=== PATIENT | female | born 1975 | race Caucasian/White ===

== ENCOUNTER 2017-03-27 11:14 | Emergency (ER) | payer OTHER ==
[~2017-03-27] VITALS: Ht 167.6 cm; Wt 134.3 kg
[~2017-03-27 11:14] MED LIST: ALBU90OI INH; ALBU90OI6 INH; ALBU90OI61 INH; ATOR10; AZIT250 PO; AZIT500 PO; BACPOLTO OD; CEPH500 PO; CIPR500 PO; CIPRSO OD; CIPRSO OU; CRUTCH2 EXT; CRUTCH2 XX; CRUTCH4 USE; DIPH50 PO; ERYT.5TO OU; FAMO20 PO; FURO20; FURO20 PO; FURO40 PO; GLIP10 PO; Glucophage PO; HYDACE5 PO; HYDACE5325 PO; HYDGUAL120 PO; IBUP600 PO; IBUP800 PO; INSULANPEN; LEVSOD100; LEVSOD175 PO; LEVSOD50 PO; LISI20; LISI20 PO; LORA10ER PO; Lasix20 MG PO; METF500; METF500 PO; METO25ER PO; MICO200S PV; NAPR500 PO; Naprosyn375 MG PO; ONDA4ODT MM; OSEL75CA PO; PIOG15 PO; POTCHL20ER PO; PRED10 PO; PRED20 PO; PROM25 PO; Percocet 5-3251 EACH PO; RANI150 PO; RXHYDGUAS PO; SERT25 PO; SULTRIDS PO; SULTRISS PO; TIOT18 INH; TOBR.3OPO OP; Ultram50 MG PO
[2017-03-27] MEDS ORDERED: ASPI81CH PO (12:04)
[2017-03-27] MEDS ORDERED: Levothyroxine200 MCG (12:04)
[2017-03-27] MEDS ORDERED: DULO60 (12:05)
[2017-03-27] MEDS ORDERED: NORT25 PO (12:05)
[2017-03-27 12:07] LABS: BASOPHILS ABSOLUTE AUTO 0.04 K/mm3 (0.00-0.23); BASOPHILS PERCENT AUTO 1 % (0-2); EOSINOPHILS PERCENT AUTO 4 % (0-6); Hematocrit 35.9 % (33.0-51.0); Hemoglobin 11.2 g/dL (11.5-16.0); IMMATURE GRAN ABSOLUTE AUTO 0.01 K/mm3 (0.00-0.10); IMMATURE GRAN PERCENT AUTO 0 % (0-1); LYMPHOCYTES PERCENT AUTO 39 % (21-46); MONOCYTES ABSOLUTE AUTO 0.65 K/mm3 (0.16-1.47); MONOCYTES PERCENT AUTO 9 % (4-13); Mean Corpuscular HGB Conc 31.2 g/dL (31.5-36.5); Mean Corpuscular Volume 80 fL (80-100); Mean Platelet Volume 10.8 fL (9.1-12.4); NEUTROPHILS ABSOLUTE AUTO 3.38 K/mm3 (1.96-9.15); NEUTROPHILS PERCENT AUTO 47 % (41-73); Platelet Count 206 K/mm3 (150-400); RDW Coefficient Variation 18.2 % (11.7-14.2); RDW Standard Deviation 53.3 fL (35.1-46.3); Red Blood Cell Count 4.48 M/mm3 (3.80-5.20); White Blood Cell Count 7.18 K/mm3 (4.00-11.30)
[2017-03-27 12:30] LABS: Alanine Aminotransfer (ALT/SGP 28 U/L (12-78); Albumin/Globulin Ratio 0.8 (0.8-1.8); Alk Phos 94 U/L (50-136); Anion Gap 7 mmol/L (6-16); Aspartate Aminotrans (AST/SGOT 9 U/L (12-37); Bilirubin, Total 0.2 mg/dL (0.1-1.0); Blood Urea Nitrogen 12 mg/dL (8-24); CO2, Blood 27 mmol/L (21-32); Calcium, Blood 8.4 mg/dL (8.5-10.1); Chloride, Blood 106 mmol/L (98-108); Creatinine, Blood 0.71 mg/dL (0.40-1.00); Glomerular Filtration Rate >60 (60-); Glucose, Blood 136 mg/dL (70-99); Sodium, Blood 140 mmol/L (136-145); Troponin I <0.015 ng/mL (0.000-0.040)
[2017-03-27 13:00] LABS: Source, Urine Clean Catch
[2017-03-27 13:08] LABS: Bilirubin, Urine Neg (Neg); Blood, Urine 3+ (Neg); Glucose Qualitative, Urine 3+ (Neg); Ketones, Urine Neg (Neg); Leukocyte Esterase, Urine 1+ (Neg); Nitrite, Urine Neg (Neg); Protein, Urine 3+ (Neg); Specific Gravity, Urine 1.015 (1.003-1.022); Urobilinogen, Urine 1+ (Normal); pH, Urine 6.5 (5.0-8.0)
[2017-03-27 13:17] LABS: Appearance, Urine Hazy (Clear); Color, Urine Yellow (P-Yellow)
[2017-03-27 13:18] LABS: Red Blood Cells, Urine 0-2 /hpf (0-2)
[2017-03-27 13:19] LABS: Amorphous Light (0-Heavy)
[2017-03-27 13:20] LABS: Bacteria Mod /hpf; Squamous Epithelial Cells Mod /hpf (Few)
[2017-03-27] MEDS ORDERED: Miralax17 GM PO (13:37)
== END 2017-03-27 13:58 | disposition home or self-care (01) ==
LOC: ER 11:14
PROVIDERS: Emergency Medicine
DX: R10.12 Left upper quadrant pain (principal); I11.0 Hypertensive heart disease with heart failure; I50.9 Heart failure, unspecified; E78.00 Pure hypercholesterolemia, unspecified; E11.9 Type 2 diabetes mellitus without complications; J44.9 Chronic obstructive pulmonary disease, unspecified; F17.200 Nicotine dependence, unspecified, uncomplicated; Z88.0 Allergy status to penicillin; Z88.2 Allergy status to sulfonamides; Z88.8 Allergy status to other drugs, medicaments and biological substances; Z79.899 Other long term (current) drug therapy; Z79.4 Long term (current) use of insulin; Z79.82 Long term (current) use of aspirin; Z90.49 Acquired absence of other specified parts of digestive tract
CPT/HCPCS: 36415; 80053; 81001; 81025; 83690; 83880; 84484; 85025; 93005; 93010; 99284

== ENCOUNTER → 2017-08-17 | Outpatient (CLI) | payer OTHER ==
[~2017-08-17] MED LIST changes: +ASPI81CH PO; +DULO60; +Levothyroxine200 MCG; +Miralax17 GM PO; +NORT25 PO
== END ==
LOC: LAB SHORT 07:28 → PLD 07:28
DX: D48.9 Neoplasm of uncertain behavior, unspecified (principal)
CPT/HCPCS: 88305

== ENCOUNTER → 2018-04-14 | Outpatient (CLI) | payer OTHER ==
[2018-04-17 12:16] LABS: Protein, Urine Quantitative 44.2 mg/dL (0.0-11.9)
== END | disposition home or self-care (01) ==
LOC: LAB 10:00 → LAB SHORT 10:00
PROVIDERS: Internal Medicine Nephrology
DX: N18.2 Chronic kidney disease, stage 2 (mild) (principal); D63.1 Anemia in chronic kidney disease; N25.81 Secondary hyperparathyroidism of renal origin; E59 Dietary selenium deficiency; E78.00 Pure hypercholesterolemia, unspecified; R76.9 Abnormal immunological finding in serum, unspecified; R94.5 Abnormal results of liver function studies; R94.6 Abnormal results of thyroid function studies
CPT/HCPCS: 81050; 82043; 82570; 84156

== ENCOUNTER → 2018-04-21 | Outpatient (CLI) | payer OTHER ==
[2018-04-21 14:10] LABS: Protein, Urine Quantitative 36.1 mg/dL (0.0-11.9)
== END | disposition home or self-care (01) ==
LOC: LAB SHORT 09:15 → LAB SRC 09:15 → LAB FUT 04-20 20:05 → EDSTATUS 04-20 20:05
PROVIDERS: Internal Medicine Nephrology
DX: N18.2 Chronic kidney disease, stage 2 (mild) (principal); N20.0 Calculus of kidney; R80.9 Proteinuria, unspecified
CPT/HCPCS: 81050; 82043; 82570; 84156

== ENCOUNTER → 2019-03-21 | Outpatient (CLI) | payer OTHER ==
[2019-03-29 12:31] LABS: Stool Occult Bld Immuno 1 Negative (NEGATIVE)
== END | disposition home or self-care (01) ==
LOC: LAB SHORT 10:14 → LAB 10:14
PROVIDERS: Nurse Practitioner Family
DX: D64.9 Anemia, unspecified (principal)
CPT/HCPCS: G0328

== ENCOUNTER 2019-05-06 04:32 | Inpatient (IN) | payer OTHER ==
[~2019-05-06] VITALS: Ht 161.6 cm; Wt 136.1 kg
[2019-05-06] MEDS ORDERED: Buspirone HCl30 MG PO (04:49)
[2019-05-06] MEDS ORDERED: ATORVASTATIN CA20 MG PO (04:49)
[2019-05-06] MEDS ORDERED: CARV6.25 PO (04:49)
[2019-05-06] MEDS ORDERED: TIOT18 INH (04:50)
[2019-05-06] MEDS ORDERED: Ventolin/Prove6.7 GM (04:50)
[2019-05-06 05:12] LABS: BASOPHILS ABSOLUTE AUTO 0.05 K/mm3 (0.00-0.23); BASOPHILS PERCENT AUTO 1 % (0-2); EOSINOPHILS ABSOLUTE AUTO 0.18 K/mm3 (0.00-0.68); EOSINOPHILS PERCENT AUTO 2 % (0-6); Hematocrit 31.4 % (33.0-51.0); Hemoglobin 9.6 g/dL (11.5-16.0); IMMATURE GRAN ABSOLUTE AUTO 0.05 K/mm3 (0.00-0.10); IMMATURE GRAN PERCENT AUTO 1 % (0-1); LYMPHOCYTES ABSOLUTE AUTO 1.55 K/mm3 (0.84-5.20); LYMPHOCYTES PERCENT AUTO 15 % (21-46); MONOCYTES PERCENT AUTO 11 % (4-13); Mean Corpuscular HGB 25.1 pg (26.0-34.0); Mean Corpuscular HGB Conc 30.6 g/dL (31.5-36.5); Mean Corpuscular Volume 82 fL (80-100); Mean Platelet Volume 11.1 fL (9.1-12.4); NEUTROPHILS PERCENT AUTO 71 % (41-73); Platelet Count 149 K/mm3 (150-400); RDW Standard Deviation 59.7 fL (35.1-46.3); Red Blood Cell Count 3.82 M/mm3 (3.80-5.20); White Blood Cell Count 10.53 K/mm3 (4.00-11.30)
[2019-05-06 05:30] LABS: Albumin, Blood 2.7 g/dL (3.4-5.0); Albumin/Globulin Ratio 0.6 (0.8-1.8); Bilirubin, Total 0.3 mg/dL (0.1-1.0); Bun/Creatinine Ratio 27.5 (12.0-20.0); Calcium, Blood 8.1 mg/dL (8.5-10.1); Creatinine, Blood 1.09 mg/dL (0.40-1.00); Globulin, Blood 4.7 g/dL (2.2-4.0); Potassium, Blood 3.9 mmol/L (3.5-5.5); Total Protein, Blood 7.4 g/dL (6.4-8.2)
[2019-05-06 05:58] LABS: Influenza A Positive (NEGATIVE); Influenza B Negative (NEGATIVE)
[2019-05-06 17:18] LABS: Glucose, Blood 692 mg/dL (70-99)
--- NOTE | 2019-05-06 18:42 | NUR ---
ADMIT NOTE AND SHIFT SUMMARY RECEIVED REPORT FROM FLACO VALLE IN ED, PT TO ROOM AT 0940. SBA TRANSFERED TO BED. PT REPORTS SOB, PRODUCTIVE COUGH AND CONGESTION FOR ABOUT 2 DAYS. PT FLU A POSITIVE, PLACED IN DROPLET ISOLATION. PT ORIENTED TO ROOM AND CALL LIGHT. EDUCATED ON FALL RISK AND CALL FOR ASSISTANCE TO GET TO BATHROOM. PT A&Ox4; CALM AND COOPERATIVE WITH CARE. PT REPORTS GENERALIZED DISCOMFORT, MEDICATED x1 WITH TYLENOL WITH MINIMAL RESULTS. PT OUT OF ROOM WALKED IN JANSEN; UP IN SHOWER THIS AFTERNOON. SOB AT REST, INCREASED WITH EXERTION. PT BREATHING LABORED, LS EXP WHEEZING AND CRACKLES SCATTERED. PT STARTED ON 4L O2 VIA NC, TITRATED BETWEEN 4-6L T/O SHIFT. PT BROUGHT HOME BIPAP RT ASSESSED AND INSTRUCTED PT TO TAKE IT HOME, HOSPITAL BIPAP AT BEDSIDE FOR DIOGO ON NOC SHIFT. PT DENIES NAUSEA AND LIGHTHEADEDNESS/DIZZINESS. PT CBG THIS EVENING 692; DR COMBS NOTIFIED GAVE A TOTAL OF 18 UNITS OF INSULIN FOR EVENING DOSE, DR COMBS PLACED NEW ORDERS FOR TOMORROW INSULIN. EDUCATED PT ON ADA DIET AND MAKING BETTER FOOD CHOICES, PT SPOUSE BROUGHT IN CAKE AND DONUTS FOR PT TO CONSUME. VSS. NO OTHER ACUTE CHANGES NOTED DURING SHIFT. WILL CONINTUE TO MONITOR UNTIL REPORT GIVEN TO ONCOMING RN.
[2019-05-06 21:42] LABS: Glucose, Blood 562 mg/dL (70-99)
--- NOTE | 2019-05-06 22:10 | NUR ---
PHYSICIAN COMMUNICATION CBG @ 562. GAVE 20U L[address]US. NOTIFIED DR PEREZ OF [facility] & SHE ORDERED 1X DOSE OF HUMALOG FROM MED SLIDING SCALE.
--- NOTE | 2019-05-07 03:09 | NUR ---
HR/RHYTHM NOTIFIED @299 BY TELE PRE K LEAD TEACHER MARCIAL THAT HR DROPPED TO 37-40 2X @0254 & 0256 FOR A FEW SECONDS THEN INCREASED BACK UP TO LOW 60'S. AT 310 WHILE WRITTING THIS NOTE I WAS NOTIFIED HR DROPPED TO 33-34 FOR A FEW SECONDS THEN INCREASED BACK UP TO 61-62. WILL NOTIFY CHARGE NURSE SAMANTHA. PT CURRENTLY RESTING COMFORTABLY. WCTM.
[2019-05-07 03:41] LABS: BASOPHILS ABSOLUTE AUTO 0.01 K/mm3 (0.00-0.23); BASOPHILS PERCENT AUTO 0 % (0-2); EOSINOPHILS PERCENT AUTO 0 % (0-6); Hematocrit 31.8 % (33.0-51.0); Hemoglobin 9.8 g/dL (11.5-16.0); IMMATURE GRAN ABSOLUTE AUTO 0.09 K/mm3 (0.00-0.10); IMMATURE GRAN PERCENT AUTO 1 % (0-1); LYMPHOCYTES ABSOLUTE AUTO 0.74 K/mm3 (0.84-5.20); LYMPHOCYTES PERCENT AUTO 6 % (21-46); MONOCYTES ABSOLUTE AUTO 0.52 K/mm3 (0.16-1.47); MONOCYTES PERCENT AUTO 4 % (4-13); Mean Corpuscular HGB 25.6 pg (26.0-34.0); Mean Corpuscular HGB Conc 30.8 g/dL (31.5-36.5); Mean Corpuscular Volume 83 fL (80-100); Mean Platelet Volume 11.7 fL (9.1-12.4); NEUTROPHILS PERCENT AUTO 90 % (41-73); Platelet Count 153 K/mm3 (150-400); RDW Coefficient Variation 19.8 % (11.7-14.2); RDW Standard Deviation 60.7 fL (35.1-46.3); Red Blood Cell Count 3.83 M/mm3 (3.80-5.20); White Blood Cell Count 13.06 K/mm3 (4.00-11.30)
[2019-05-07 03:57] LABS: Alanine Aminotransfer (ALT/SGP 36 U/L (12-78); Albumin, Blood 2.5 g/dL (3.4-5.0); Albumin/Globulin Ratio 0.5 (0.8-1.8); Alk Phos 99 U/L (50-136); Anion Gap 4 mmol/L (6-16); Aspartate Aminotrans (AST/SGOT 41 U/L (12-37); Bilirubin, Total 0.3 mg/dL (0.1-1.0); Blood Urea Nitrogen 36 mg/dL (8-24); Bun/Creatinine Ratio 39.7 (12.0-20.0); CO2, Blood 27 mmol/L (21-32); Calcium, Blood 8.2 mg/dL (8.5-10.1); Chloride, Blood 101 mmol/L (98-108); Creatinine, Blood 0.91 mg/dL (0.40-1.00); Glomerular Filtration Rate >60 (60-); Glucose, Blood 321 mg/dL (70-99); Potassium, Blood 5.4 mmol/L (3.5-5.5); Sodium, Blood 132 mmol/L (136-145); Total Protein, Blood 7.5 g/dL (6.4-8.2)
[2019-05-07 04:00] LABS: Thyroid Stimulating Hormone 0.566 uIU/mL (0.360-4.800)
--- NOTE | 2019-05-07 06:18 | NUR ---
SHIFT SUMMARY AOX4. HR DROPPED TO 33 PER TELE CALCINER FEEDER LAST NIGHT FOR A FEW SECONDS & THEN INCREASED BACK UP TO LOW 60'S, READ PREVIOUS NOTE, CHARGE NURSE SAMANTHA RUBIO, PT ASYMPTOMATIC, WILL NOTIFY ONCOMING DAY NURSE. DENIES PAIN OR N/V. REPORTS INCREASED DYSPNEA W/ACTIVITY, HAS WHEEZES T/O LUNGS, SPO2 >90% ON 4L O2 BLEED INTO BIPAP, REPORTS BREATHING "BETTER THAN YESTERDAY." CBG @HS WAS >500, NOTIFIED DR ERAZO & SHE ORDERED A 1X DOSE OF HUMALOG PER SLIDING SCALE. SBA TO RESTROOM. ON MENSUS. CALL LIGHT IN REACH. TM.
--- NOTE | 2019-05-07 17:56 | NUR ---
SHIFT SUMMARY PT STILL HAVING EXERTIONAL DYSPNEA, HOWEVER RECOVERS QUICKLY. PT REMAINS ON O2 AND WAS ABLE TO BE WEANED TO 2L NC TO MAINTAIN SPO2 >92%. CBG HAVE REMAINED >[address] ADJUSTED PT'S LANTUS AND SSI. DIABETES EDUCATION PROVIDED BY [employer] TECHNICAL OFFICER TODAY. TELEMETRY HAS SHOWN PT TO BE SINUS AMBROSE TODAY. COREG WAS DECREASED BY AND HOLD PERAMETERS IN PLACE. PT WAS NOT ABLE TO RECEIVE ANY COREG ON DAY SHIFT DUE TO HR IN THE 50'S. OTHER VITALS HAVE REMAINED STABLE.
--- NOTE | 2019-05-08 03:44 | NUR ---
43 year old obese pt with IDDM and influenza positive continues in droplet precautions for influenza A. She was weaned from 6 l nc to 2 l nc to keep sats greater than 90%. She is on steroids and wearing bipap for kathy. Blood glucose 383 at hs lantus insulin was increased to 25 units bid and changed to high sliding scale and oral antihyperglycemics added back as per home routine. PT compliant with bipap says she is equipped with home BIPAP but no home oxygen. PT says she wants to go home to recover from the flu.
--- NOTE | 2019-05-08 07:38 | NUR ---
DR Carbone called to clarify home med BuspaR 30 MG PO bid VERSUS 1 X DAY. mED ADMINISTERED EARLY TO PREVENT WITHDRAWL FROM MAX DOSE BUSPAR.
[2019-05-08] MEDS ORDERED: ACET325 PO (10:11)
[2019-05-08] MEDS ORDERED: Humalog100 UNIT/3 SC (10:12)
[2019-05-08] MEDS ORDERED: OSEL75CA PO (10:13)
[2019-05-08] MEDS ORDERED: PRED20 PO (10:16)
== END 2019-05-08 12:51 | disposition home or self-care (01) | DRG 193 ==
LOC: ER 04:32 → PCU 08:31
PROVIDERS: Emergency Medicine; Nurse Practitioner Acute Care; ADMIT Internal Medicine
DX: J10.1 Influenza due to other identified influenza virus with other respiratory manifestations (principal); J96.01 Acute respiratory failure with hypoxia; J44.1 Chronic obstructive pulmonary disease with (acute) exacerbation; Z68.43 Body mass index [BMI] 50.0-59.9, adult; I10 Essential (primary) hypertension; E78.00 Pure hypercholesterolemia, unspecified; F17.210 Nicotine dependence, cigarettes, uncomplicated; Z79.82 Long term (current) use of aspirin; E66.01 Morbid (severe) obesity due to excess calories; G47.33 Obstructive sleep apnea (adult) (pediatric); E03.9 Hypothyroidism, unspecified; J20.9 Acute bronchitis, unspecified; R00.1 Bradycardia, unspecified; T44.7X5A Adverse effect of beta-adrenoreceptor antagonists, initial encounter; Y92.9 Unspecified place or not applicable
CPT/HCPCS: 36415; 71046; 80053; 82947; 83036; 83880; 84145; 84443; 85025; 87804; 94640; 94660; 94761; 94762; 96365; 96375; 99285-25; A9270; A9270-GY; J0696; J1650; J2930; J7030

== ENCOUNTER 2020-02-22 10:47 | Inpatient (IN) | payer OTHER ==
[~2020-02-22] VITALS: Ht 167.6 cm; Wt 174.1 kg
[~2020-02-22 10:47] MED LIST changes: +ACET325 PO; -ASPI81CH PO; +ATORVASTATIN CA20 MG PO; +Aspirin EC81 MG PO; +Buspirone HCl30 MG PO; +CARV6.25 PO; +HUMALOG KW100 UNIT/1 SC; +Ventolin/Prove6.7 GM
[2020-02-22 11:43] LABS: BASOPHILS ABSOLUTE AUTO 0.09 K/mm3 (0.00-0.23); BASOPHILS PERCENT AUTO 1 % (0-2); EOSINOPHILS ABSOLUTE AUTO 0.66 K/mm3 (0.00-0.68); EOSINOPHILS PERCENT AUTO 6 % (0-6); Hematocrit 27.9 % (33.0-51.0); Hemoglobin 7.7 g/dL (11.5-16.0); IMMATURE GRAN ABSOLUTE AUTO 0.04 K/mm3 (0.00-0.10); IMMATURE GRAN PERCENT AUTO 0 % (0-1); LYMPHOCYTES ABSOLUTE AUTO 2.12 K/mm3 (0.84-5.20); LYMPHOCYTES PERCENT AUTO 19 % (21-46); MONOCYTES ABSOLUTE AUTO 1.27 K/mm3 (0.16-1.47); MONOCYTES PERCENT AUTO 11 % (4-13); Mean Corpuscular HGB 20.5 pg (26.0-34.0); Mean Corpuscular HGB Conc 27.6 g/dL (31.5-36.5); Mean Corpuscular Volume 74 fL (80-100); Mean Platelet Volume 10.1 fL (9.1-12.4); NEUTROPHILS ABSOLUTE AUTO 7.05 K/mm3 (1.96-9.15); NEUTROPHILS PERCENT AUTO 63 % (41-73); Platelet Count 287 K/mm3 (150-400); RDW Coefficient Variation 19.9 % (11.7-14.2); RDW Standard Deviation 53.5 fL (35.1-46.3); Red Blood Cell Count 3.76 M/mm3 (3.80-5.20); White Blood Cell Count 11.23 K/mm3 (4.00-11.30)
[2020-02-22 12:01] LABS: Alanine Aminotransfer (ALT/SGP 24 U/L (12-78); Albumin, Blood 2.9 g/dL (3.4-5.0); Albumin/Globulin Ratio 0.6 (0.8-1.8); Alk Phos 124 U/L (50-136); Anion Gap 4 mmol/L (6-16); Aspartate Aminotrans (AST/SGOT 17 U/L (12-37); Bilirubin, Total 0.3 mg/dL (0.1-1.0); Blood Urea Nitrogen 38 mg/dL (8-24); Bun/Creatinine Ratio 37.3 (12.0-20.0); CO2, Blood 26 mmol/L (21-32); Calcium, Blood 8.9 mg/dL (8.5-10.1); Chloride, Blood 108 mmol/L (98-108); Creatinine, Blood 1.02 mg/dL (0.40-1.00); Globulin, Blood 4.5 g/dL (2.2-4.0); Glomerular Filtration Rate >60 (60-); Glucose, Blood 99 mg/dL (70-99); Sodium, Blood 138 mmol/L (136-145); Total Protein, Blood 7.4 g/dL (6.4-8.2); Troponin I <0.015 ng/mL (0.000-0.040)
[2020-02-22 12:36] LABS: Influenza A, PCR Negative (NEGATIVE); Influenza B, PCR Negative (NEGATIVE); Resp Syncytial Virus, PCR Negative (NEGATIVE); SARS-Cov-2 (COVID-19) PCR, MMC Negative (NEGATIVE)
[2020-02-22] MEDS ORDERED: FUROSEMIDE40 MG PO (13:20)
[2020-02-22] MEDS ORDERED: PIOGLITAZONE HC45 MG PO (13:20)
[2020-02-22] MEDS ORDERED: DULOXETINE HCL60 M1 PO (13:20)
[2020-02-22] MEDS ORDERED: STIOLTO RESPIMAT4 G1 INH (13:21)
[2020-02-22] MEDS ORDERED: Synthroid/Levo0.2 MG PO (13:21)
[2020-02-22] MEDS ORDERED: GLIP10 PO (13:22)
[2020-02-22] MEDS ORDERED: ABILIFY5 MG PO (13:22)
[2020-02-22] MEDS ORDERED: GLUCOPHAGE1000 M3 PO (13:23)
[2020-02-22] MEDS ORDERED: SYNTHROID50 MC1 PO (13:23)
[2020-02-22] MEDS ORDERED: ZESTRIL40 M1 PO (13:23)
[2020-02-22] MEDS ORDERED: Klor-Con 1010 MEQ PO (13:24)
[2020-02-22] MEDS ORDERED: BASAGLAR K100 UNIT/6 SC (13:24)
[2020-02-22 13:36] LABS: Percent Saturation 4.4 % (15.0-50.0)
[2020-02-22 14:19] LABS: Source, Urine Voided
[2020-02-22 14:25] LABS: Appearance, Urine Clear (Clear); Bilirubin, Urine Neg (Neg); Blood, Urine Neg (Neg); Color, Urine Yellow (P-Yellow); Glucose Qualitative, Urine Neg (Neg); Ketones, Urine Neg (Neg); Leukocyte Esterase, Urine 1+ (Neg); Nitrite, Urine Neg (Neg); Protein, Urine Neg (Neg); Specific Gravity, Urine 1.015 (1.003-1.022); Urobilinogen, Urine NORM (Normal)
[2020-02-22 14:33] LABS: Amorphous Light (0-Heavy); Bacteria Few /hpf; Red Blood Cells, Urine Not Seen /hpf (0-2); Squamous Epithelial Cells Rare /hpf (Few); White Blood Cells, Urine 0-2 /hpf (0-5)
[2020-02-22 18:04] LABS: Hematocrit 28.6 % (33.0-51.0); Hemoglobin 7.8 g/dL (11.5-16.0)
--- NOTE | 2020-02-22 19:05 | NUR ---
PT IS IN BED WITH RT RECEIVING A BREATHING TREATMENT. PT ATE DINNER, WAS MED COMPLIANT AT CALM AND COOPERATIVE. PT WAITING FOR POWERGLIDE PLACEMENT. HOB TO BE ELIVATED TO RELIEVE CHEST PRESURE AND EXPAND LUNG CAPACITY. BILAT UPPER AND LOWER EXT. EDEMA 4+, PT STATES THIS IS HER BASELINE. STAFF WILL CONT. TO MONITOR FOR CHANGES.
--- NOTE | 2020-02-22 23:08 | NUR ---
TRANSFER NOTE PT STABLE WITH NO ACUTE CHANGES WHILE IN THIS RN'S CARE. TRANSFERRED FROM ROOM 348 TO 337 @ 2300 WITH PERSONAL ITEMS, REPORT GIVEN TO MANDO ANDREW RN.
--- NOTE | 2020-02-22 23:26 | NUR ---
2300 REPORT RECEIVED FROM FLACO RIVERA; PT MOVED INTO ROOM 337 PER BED FROM ROOM 348 WITH ALL PERSONAL BELONGINGS, C/PAP APPLIED.
--- NOTE | 2020-02-23 03:50 | NUR ---
SHIFT SUMMARY: 44 Y/O MORBID OBESE FEMALE RESTED COMFORTABLY ALL SHIFT; DENIES PAIN OR NAUSEA; WEARING C/PAP ALL SHIFT WITH O2 SATS 94%; HAPPY AND COOPERATIVE; BED LOW POSITION WITH CALL LIGHT AT SIDE.
[2020-02-23 04:57] LABS: BASOPHILS ABSOLUTE AUTO 0.06 K/mm3 (0.00-0.23); BASOPHILS PERCENT AUTO 1 % (0-2); EOSINOPHILS ABSOLUTE AUTO 0.01 K/mm3 (0.00-0.68); EOSINOPHILS PERCENT AUTO 0 % (0-6); Hematocrit 28.9 % (33.0-51.0); Hemoglobin 8.1 g/dL (11.5-16.0); IMMATURE GRAN ABSOLUTE AUTO 0.06 K/mm3 (0.00-0.10); IMMATURE GRAN PERCENT AUTO 1 % (0-1); LYMPHOCYTES PERCENT AUTO 9 % (21-46); MONOCYTES ABSOLUTE AUTO 0.07 K/mm3 (0.16-1.47); MONOCYTES PERCENT AUTO 1 % (4-13); Mean Corpuscular HGB 20.4 pg (26.0-34.0); Mean Corpuscular Volume 73 fL (80-100); NEUTROPHILS ABSOLUTE AUTO 9.02 K/mm3 (1.96-9.15); NEUTROPHILS PERCENT AUTO 89 % (41-73); Platelet Count 293 K/mm3 (150-400); RDW Coefficient Variation 19.7 % (11.7-14.2); RDW Standard Deviation 51.8 fL (35.1-46.3); Red Blood Cell Count 3.98 M/mm3 (3.80-5.20); White Blood Cell Count 10.12 K/mm3 (4.00-11.30)
[2020-02-23 05:32] LABS: Alanine Aminotransfer (ALT/SGP 26 U/L (12-78); Albumin/Globulin Ratio 0.6 (0.8-1.8); Alk Phos 135 U/L (50-136); Anion Gap 5 mmol/L (6-16); Aspartate Aminotrans (AST/SGOT 20 U/L (12-37); Bilirubin, Total 0.4 mg/dL (0.1-1.0); Blood Urea Nitrogen 31 mg/dL (8-24); Bun/Creatinine Ratio 33.4 (12.0-20.0); CO2, Blood 24 mmol/L (21-32); Calcium, Blood 9.3 mg/dL (8.5-10.1); Chloride, Blood 104 mmol/L (98-108); Creatinine, Blood 0.93 mg/dL (0.40-1.00); Globulin, Blood 4.7 g/dL (2.2-4.0); Glomerular Filtration Rate >60 (60-); Glucose, Blood 274 mg/dL (70-99); Potassium, Blood 5.2 mmol/L (3.5-5.5); Sodium, Blood 133 mmol/L (136-145); Total Protein, Blood 7.7 g/dL (6.4-8.2)
[2020-02-23] MEDS ORDERED: ACET325 PO (15:23)
[2020-02-23] MEDS ORDERED: AZIT500 PO (15:24)
[2020-02-23] MEDS ORDERED: CHEST CONGESTI473 ML PO (15:25)
[2020-02-23] MEDS ORDERED: BENZ100A PO (15:25)
[2020-02-23] MEDS ORDERED: FERSU300 PO (15:26)
[2020-02-23] MEDS ORDERED: PRED20 PO (15:26)
[2020-02-23] MEDS ORDERED: ONDA4ODT MM (15:26)
[2020-02-23] MEDS ORDERED: VISBIOME PROBIOTIC PO (15:27)
[2020-02-23] MEDS ORDERED: ASCO500 PO (15:27)
== END 2020-02-23 15:57 | disposition home or self-care (01) | DRG 189 ==
LOC: ER 10:47 → PCU 13:08 → MEDS 14:43
PROVIDERS: Emergency Medicine; Nurse Practitioner Acute Care; ADMIT Family Medicine
PROC: 3E0234Z Introduction of Serum, Toxoid and Vaccine into Muscle, Percutaneous Approach (ICD-10-PCS; principal; 2020-02-22)
DX: J96.21 Acute and chronic respiratory failure with hypoxia (principal); J44.1 Chronic obstructive pulmonary disease with (acute) exacerbation; I50.32 Chronic diastolic (congestive) heart failure; Z68.43 Body mass index [BMI] 50.0-59.9, adult; I11.0 Hypertensive heart disease with heart failure; Z20.828 Contact with and (suspected) exposure to other viral communicable diseases; Z23 Encounter for immunization; E03.9 Hypothyroidism, unspecified; E66.01 Morbid (severe) obesity due to excess calories; G47.33 Obstructive sleep apnea (adult) (pediatric); E11.9 Type 2 diabetes mellitus without complications; E78.5 Hyperlipidemia, unspecified; F41.9 Anxiety disorder, unspecified; F32.9 Major depressive disorder, single episode, unspecified; D63.8 Anemia in other chronic diseases classified elsewhere; K76.0 Fatty (change of) liver, not elsewhere classified; F17.210 Nicotine dependence, cigarettes, uncomplicated; Z79.4 Long term (current) use of insulin; Z79.82 Long term (current) use of aspirin
CPT/HCPCS: 0241U; 36415; 71045; 71046; 71260; 80053; 81001; 82272; 82607; 82728; 82746; 82947; 83540; 83550; 83605; 83880; 84145; 84484; 85014; 85018; 85025; 85379; 86140; 87040; 93005; 93010; 94640; 94660; 94762; 96365-59; 96367; 99285-25; A9270; A9270-GY; J0456; J0696; J1650; J2930; J7030; J7050; Q2038; Q9967

== ENCOUNTER 2021-02-13 14:30 | Inpatient (IN) | payer OTHER ==
[~2021-02-13] VITALS: Ht 165.1 cm; Wt 198.0 kg
[~2021-02-13 14:30] MED LIST changes: +ABILIFY5 MG PO; +ASCO500 PO; +BASAGLAR K100 UNIT/6 SC; +BENZ100A PO; +CHEST CONGESTI473 ML PO; +DULOXETINE HCL60 M1 PO; +FERSU300 PO; +FUROSEMIDE40 MG PO; +GLUCOPHAGE1000 M3 PO; +Klor-Con 1010 MEQ PO; +PIOGLITAZONE HC45 MG PO; +STIOLTO RESPIMAT4 G1 INH; +SYNTHROID50 MC1 PO; +Synthroid/Levo0.2 MG PO; +VISBIOME PROBIOTIC PO; +ZESTRIL40 M1 PO
[2021-02-13 14:57] LABS: Base Excess Venous -7.7 mmol/L; Bicarbonate Venous 18.7 mmol/L (24.0-30.0); PCO2 Venous 36.7 mmHg (38-42); PO2 Venous 151 mmHg (38-42); pH Blood Venous 7.31 (7.34-7.37)
[2021-02-13 15:05] LABS: BASOPHILS ABSOLUTE AUTO 0.09 K/mm3 (0.00-0.23); BASOPHILS PERCENT AUTO 1 % (0-2); EOSINOPHILS ABSOLUTE AUTO 0.34 K/mm3 (0.00-0.68); EOSINOPHILS PERCENT AUTO 3 % (0-6); Hemoglobin 9.1 g/dL (11.5-16.0); IMMATURE GRAN ABSOLUTE AUTO 0.08 K/mm3 (0.00-0.10); IMMATURE GRAN PERCENT AUTO 1 % (0-1); LYMPHOCYTES PERCENT AUTO 20 % (21-46); MONOCYTES ABSOLUTE AUTO 1.16 K/mm3 (0.16-1.47); MONOCYTES PERCENT AUTO 9 % (4-13); Mean Corpuscular HGB 21.1 pg (26.0-34.0); Mean Corpuscular HGB Conc 28.4 g/dL (31.5-36.5); Mean Corpuscular Volume 74 fL (80-100); Mean Platelet Volume 10.1 fL (9.1-12.4); NEUTROPHILS ABSOLUTE AUTO 8.48 K/mm3 (1.96-9.15); NEUTROPHILS PERCENT AUTO 67 % (41-73); NRBC ABSOLUTE 0.09 K/mm3 (0.00-0.02); NRBC Auto 0.7 /100 WBC (0.0-0.2); Platelet Count 327 K/mm3 (150-400); RDW Coefficient Variation 20.1 % (11.7-14.2); RDW Standard Deviation 53.8 fL (35.1-46.3); Red Blood Cell Count 4.32 M/mm3 (3.80-5.20); White Blood Cell Count 12.65 K/mm3 (4.00-11.30)
[2021-02-13 15:42] LABS: Troponin I <0.015 ng/mL (0.000-0.040)
[2021-02-13 16:10] LABS: Alanine Aminotransfer (ALT/SGP 37 U/L (12-78); Albumin, Blood 2.6 g/dL (3.4-5.0); Albumin/Globulin Ratio 0.6 (0.8-1.8); Alk Phos 126 U/L (50-136); Anion Gap 5 mmol/L (6-16); Aspartate Aminotrans (AST/SGOT 35 U/L (12-37); Bilirubin, Total 0.5 mg/dL (0.1-1.0); Blood Urea Nitrogen 45 mg/dL (8-24); Bun/Creatinine Ratio 30.2 (12.0-20.0); CO2, Blood 19 mmol/L (21-32); Calcium, Blood 8.8 mg/dL (8.5-10.1); Chloride, Blood 109 mmol/L (98-108); Creatinine, Blood 1.49 mg/dL (0.40-1.00); Globulin, Blood 4.7 g/dL (2.2-4.0); Glomerular Filtration Rate 38 (60-); Glucose, Blood 176 mg/dL (70-99); Potassium, Blood 6.4 mmol/L (3.5-5.5); Sodium, Blood 133 mmol/L (136-145); Total Protein, Blood 7.3 g/dL (6.4-8.2)
[2021-02-13] MEDS ORDERED: BUME2 PO (19:42)
[2021-02-13 20:02] LABS: Source, Urine Catheter
[2021-02-13 20:09] LABS: Appearance, Urine Hazy (Clear); Bilirubin, Urine Neg (Neg); Blood, Urine 1+ (Neg); Glucose Qualitative, Urine 4+ (Neg); Ketones, Urine Neg (Neg); Leukocyte Esterase, Urine Neg (Neg); Nitrite, Urine Neg (Neg); Protein, Urine 2+ (Neg); Urobilinogen, Urine NORM (Normal)
--- NOTE | 2021-02-13 20:30 | NUR ---
SHIFT ASSESSMENT PT ARRIVED TO ICU FROM RADIOLOGIC TECHNOLOGY TEACHER VIA ICU BED. BIPAP ON PT UPON ARRIVAL, TRANSITIONED TO 4L VIA NC c O2 SATS >95%. EXTERNAL PACEMAKER INSERTED VIA R SUBCLAVIAN c CAPTURE, RATE OF 60BPM. VSS. PT ALERT AND ORIENTED, MONTANO, FOLLOWING COMMANDS. PT DENIES SOB, CP, OR DIZZINESS. LS CLEAR. PUREWICK EXTERNAL CATHETER IN PLACE, PT UNABLE TO VOID, BOWER CATH ESTABLISHED. CLEAR YELLOW URINE DRAINING TO GRAVITY, UA SENT TO LAB. WILL CONTINUE TO MONITOR CLOSELY.
[2021-02-13 20:45] LABS: PCO2 Arterial 43.1 mmHg (35-45); PO2 Arterial 97.1 mmHg (80-100); pH Blood Arterial 7.28 (7.35-7.45)
[2021-02-13 21:00] LABS: Color, Urine Pale Yellow (P-Yellow)
[2021-02-13 21:02] LABS: Bacteria Rare /hpf; Red Blood Cells, Urine 0-2 /hpf (0-2); Squamous Epithelial Cells Few /hpf (Few)
[2021-02-14 03:25] LABS: BASOPHILS ABSOLUTE AUTO 0.07 K/mm3 (0.00-0.23); BASOPHILS PERCENT AUTO 1 % (0-2); EOSINOPHILS ABSOLUTE AUTO 0.25 K/mm3 (0.00-0.68); EOSINOPHILS PERCENT AUTO 2 % (0-6); Hematocrit 28.9 % (33.0-51.0); Hemoglobin 8.4 g/dL (11.5-16.0); IMMATURE GRAN ABSOLUTE AUTO 0.03 K/mm3 (0.00-0.10); IMMATURE GRAN PERCENT AUTO 0 % (0-1); LYMPHOCYTES ABSOLUTE AUTO 1.99 K/mm3 (0.84-5.20); LYMPHOCYTES PERCENT AUTO 19 % (21-46); MONOCYTES ABSOLUTE AUTO 1.37 K/mm3 (0.16-1.47); MONOCYTES PERCENT AUTO 13 % (4-13); Mean Corpuscular HGB 21.1 pg (26.0-34.0); Mean Corpuscular HGB Conc 29.1 g/dL (31.5-36.5); Mean Corpuscular Volume 72 fL (80-100); NEUTROPHILS ABSOLUTE AUTO 6.86 K/mm3 (1.96-9.15); NEUTROPHILS PERCENT AUTO 65 % (41-73); NRBC ABSOLUTE 0.07 K/mm3 (0.00-0.02); NRBC Auto 0.7 /100 WBC (0.0-0.2); Platelet Count 300 K/mm3 (150-400); RDW Coefficient Variation 19.9 % (11.7-14.2); RDW Standard Deviation 51.4 fL (35.1-46.3); Red Blood Cell Count 3.99 M/mm3 (3.80-5.20); White Blood Cell Count 10.57 K/mm3 (4.00-11.30)
[2021-02-14 03:50] LABS: Bun/Creatinine Ratio 29.3 (12.0-20.0); Calcium, Blood 9.3 mg/dL (8.5-10.1); Creatinine, Blood 1.33 mg/dL (0.40-1.00)
[2021-02-14 05:26] LABS: PCO2 Arterial 44.6 mmHg (35-45); PO2 Arterial 150 mmHg (80-100); pH Blood Arterial 7.29 (7.35-7.45)
--- NOTE | 2021-02-14 06:32 | NUR ---
SHIFT SUMMARY PT DENIES CHEST PAIN OR DIZZINESS T/O THE NIGHT. EXTERNAL PACEMAKER MAINTAINED HR OF 60. REMAINED ON BIPAP WHILE SLEEPING, SATS >95%. PT REMAINS HYPERKALEMIC, MEDICATED MULTIPLE TIMES c D50 & INSULIN, MOST RECENT POTASSIUM WAS 6.0. BICARB GTT STARTED @ 75ML/HR. NO OTHER ACUTE CHANGES DURING THE NIGHT. WILL CONTINUE TO MONITOR.
--- NOTE | 2021-02-14 07:30 | NUR ---
ASSUMED CARE PATIENT LYING IN BED W/ EYES CLOSED; OPENS EYES AND GREETS STAFF UPON ENTERING THE ROOM. TRACKS TO SOUND AND FOLLOWS DIRECTIONS. BIPAP IN PLACE 16/10 30% FIO2. SPO2 MID TO HIGH 90'S AND RR 18-24. A&O X 4. LUNG SOUNDS ARE COARSE T/O. FAINT PULSES IN STUART DP AND PT, STRONG RADIAL PULSES STUART. BP STABLE W/ SBP GREATER THAN 100, DBP LOW 30'S-50'S, MAPS HIGH 40'S TO HIGH 50'S. TRANSVENOUS ATRIAL PACER IN PLACE 45CM EXPOSED; 60 RATE, 10 OUTPUT, 6 SENSITIVITY. EDEMA IN BLE 3+ PITTING. HYPERACTIVE BT; CURRENTLY NPO FOR POSSIBLE PERMANENT PACEMEAKER PROCEDURE TODAY. SKIN IS OVERALL PALE AND OCCASSIONALLY MOIST. BRUISING TO RT CHESTWALL WHERE AXILLA BEGINS. PATIENT HAS 2 PERIPHERAL IV'S, RT SUBCLAVIAN AND LT FOREARM. IV TO LT AC FOUND TO BE LYING IN BED UPON ASSESSMENT. SODIUM BICARB IN 0.45% NS INF @ 75ML/HR.
--- NOTE | 2021-02-14 09:46 | NUR ---
UPDATES FROM DR. TORO/DR.MANN DR. TORO NOTIFIED OF LOW BLOOD SUGAR RESULT OF 65MG/DL. ORDERS OBTAINED TO DC SEMGLEE, GIVE 1 AMP D50 IV NOW W/ Q1H CBG, AND ADD D5 TO SODIUM BICARB INFUSION. DR. LEVY AT BEDSIDE TO EVALUATE PATIENT AND CHANGED PACER SETTINGS TO RATE 40, OUTPUT 15, AND SENSITIVITY OF 6 FOR TODAY AND THROUGH THE MEDICAL CODER TO ASSESS IF PERMANENT PACEMAKER WILL BE NECESSARY. IN THE EVENT THAT THE PATIENT SUSTAINS HR 40, NURSE WILL INCREASE RATE TO 60. ECHO CURRENTLY BEING COMPLETED AT BEDSIDE
--- NOTE | 2021-02-14 11:37 | NUR ---
AROUND 1000 FAILURE TO CAPTURE NOTED, PACER SPIKES HITTING DURING AND AFTER QRS, PT'S RATE 30'S. PT POSITIONED TO LEFT SIDE W/O CHANGE, PACER WIRE UNMOVED FROM INITIAL ASSESSMENT, BP DROPPED FURTHER, PT REMAINS AWAKE AND ABLE TO ANSWER QUESTIONS, DENIES COMPLAINTS. RATE INCREASED TO 60, PT THEN CAPUTURED CORRECTLY AT RATE OF 60. BP IMPROVED, DR LEVY CALLED AND UPDATED. RATE DECREASED TO [address] LEVY, PACER CONT TO CAPTURE APPROPRIATELY, RATE NOW 50, 100% PACED. ORDERS TO INCREASE RATE BACK UP TO 60 IF PT HAS FAILURE TO CAPTURE AGAIN. mA AND SENSE UNCHANGED.
[2021-02-14 13:05] LABS: Bun/Creatinine Ratio 24.4 (12.0-20.0); Creatinine, Blood 1.56 mg/dL (0.40-1.00); Potassium, Blood 5.9 mmol/L (3.5-5.5)
--- NOTE | 2021-02-14 18:29 | NUR ---
SHIFT SUMMARY PATIENT PLACED ON CARDIAC DIET UNTIL MIDNIGHT AFTER PACEMAKER PROCEDURE PUT OFF UNTIL 02/15/21. SEE NOTE ON DR. LEVY AT BEDSIDE. PATIENT HAD A PERIOD DURING THE DAY OF DESATTING TO THE MID 70'S WHEN SHE FELL ASLEEP WHILE ON HFT. SWITCHED PATIENT BACK TO BIPAP AND SPO2 RECOVERED TO THE MID TO HIGH 90'S WITHIN MINUTES. DR. VILLAR CONSULTED AND LABS/IMAGING ORDERED; STARTED ON ARANESP AND LOKELMA. NO OTHER MAJOR CHANGES THIS SHIFT.
[2021-02-14 18:52] LABS: Bun/Creatinine Ratio 22.8 (12.0-20.0); Calcium, Blood 8.5 mg/dL (8.5-10.1); Creatinine, Blood 1.67 mg/dL (0.40-1.00)
[2021-02-14 18:53] LABS: Potassium, Blood 6.1 mmol/L (3.5-5.5)
--- NOTE | 2021-02-14 22:39 | NUR ---
SHIFT ASSESSMENT ASSUMED CARE OF PT @ 1900. REPORT FROM MANDI. PT ALERT AND ORIENTED. SITTING UPRIGHT IN BED, WEAK BUT MOVING ALL EXTREMITIES. DENIES CP, DIZZINESS, OR SOB. EXTERNAL PACEMAKER SET @ 50, FULLY PACED RYTHM. PT ON BIPAP- 16/10 @ 30% c O2 SATS >95%. BP STABLE. PT REMAINS HYPERKALEMIC, AWAITING 2200 POTASSIUM LEVEL. BOWER CATH PATENT, DRAINING YELLOW URINE. PT NPO AFTER MIDNIGHT FOR POTENTIAL PACEMAKER PLACEMENT.
[2021-02-14 22:47] LABS: Bun/Creatinine Ratio 24.4 (12.0-20.0); Calcium, Blood 8.6 mg/dL (8.5-10.1); Creatinine, Blood 1.76 mg/dL (0.40-1.00); Potassium, Blood 5.7 mmol/L (3.5-5.5)
[2021-02-15 04:03] LABS: BASOPHILS ABSOLUTE AUTO 0.09 K/mm3 (0.00-0.23); BASOPHILS PERCENT AUTO 1 % (0-2); EOSINOPHILS ABSOLUTE AUTO 0.36 K/mm3 (0.00-0.68); EOSINOPHILS PERCENT AUTO 4 % (0-6); Hematocrit 27.3 % (33.0-51.0); Hemoglobin 7.9 g/dL (11.5-16.0); IMMATURE GRAN ABSOLUTE AUTO 0.02 K/mm3 (0.00-0.10); IMMATURE GRAN PERCENT AUTO 0 % (0-1); LYMPHOCYTES ABSOLUTE AUTO 2.34 K/mm3 (0.84-5.20); LYMPHOCYTES PERCENT AUTO 24 % (21-46); MONOCYTES ABSOLUTE AUTO 1.22 K/mm3 (0.16-1.47); MONOCYTES PERCENT AUTO 13 % (4-13); Mean Corpuscular HGB Conc 28.9 g/dL (31.5-36.5); Mean Corpuscular Volume 73 fL (80-100); Mean Platelet Volume 10.2 fL (9.1-12.4); NEUTROPHILS ABSOLUTE AUTO 5.57 K/mm3 (1.96-9.15); NEUTROPHILS PERCENT AUTO 58 % (41-73); NRBC ABSOLUTE 0.06 K/mm3 (0.00-0.02); NRBC Auto 0.6 /100 WBC (0.0-0.2); Platelet Count 273 K/mm3 (150-400); RDW Coefficient Variation 20.3 % (11.7-14.2); RDW Standard Deviation 51.7 fL (35.1-46.3); Red Blood Cell Count 3.76 M/mm3 (3.80-5.20)
[2021-02-15 04:23] LABS: Alanine Aminotransfer (ALT/SGP 28 U/L (12-78); Albumin, Blood 2.2 g/dL (3.4-5.0); Albumin/Globulin Ratio 0.5 (0.8-1.8); Alk Phos 94 U/L (50-136); Anion Gap 4 mmol/L (6-16); Aspartate Aminotrans (AST/SGOT 12 U/L (12-37); Bilirubin, Direct 0.1 mg/dL (0.0-0.3); Bilirubin, Indirect 0.2 mg/dL (0.1-0.7); Bilirubin, Total 0.3 mg/dL (0.1-1.0); Blood Urea Nitrogen 44 mg/dL (8-24); CO2, Blood 27 mmol/L (21-32); CPK Creatine Kinase 20 U/L (26-193); Calcium, Blood 8.6 mg/dL (8.5-10.1); Chloride, Blood 108 mmol/L (98-108); Creatinine, Blood 1.69 mg/dL (0.40-1.00); Globulin, Blood 4.2 g/dL (2.2-4.0); Glomerular Filtration Rate 33 (60-); Glucose, Blood 138 mg/dL (70-99); Phosphorus, Blood 3.8 mg/dL (2.5-4.9); Potassium, Blood 5.4 mmol/L (3.5-5.5); Sodium, Blood 139 mmol/L (136-145); Total Protein, Blood 6.4 g/dL (6.4-8.2); Uric Acid, Blood 7.7 mg/dL (2.6-6.0)
--- NOTE | 2021-02-15 06:36 | NUR ---
SHIFT SUMMARY PT REMAINS ALERT AND ORIENTED, DENIES CP OR SOB, ONLY COMPLAINT IS DISCOMFORT FROM BEING IN BED. ON BIPAP T/O THE NIGHT. EXTERNAL PACEMAKER c NO LOSS OF CAPTURE, SETTINGS REMAIN THE SAME. PT NPO AFTER MIDNIGHT. NO ACUTE CHANGES IN PT CONDITION, REPORT TO ONCOMING NURSE.
[2021-02-15 08:26] LABS: Percent Saturation 6.1 % (15.0-50.0)
--- NOTE | 2021-02-15 09:53 | NUR ---
ASSUMED CARE/ DR. LEVY TO BEDSIDE PATIENT LYING IN BED WITH EYES CLOSED, BIPAP IN PLACE. PATIENT OPENS EYES AND GREETS STAFF UPON ENTERING ROOM. ABLE TO USE CALL LIGHT TO MAKE NEEDS KNOWN. A&O X 4, FOLLOWS COMMANDS. PUPILS 4MM STUART AND BRISK RESPONSE TO LIGHT. SWTICHES BETWEEN BIPAP 16/10 W/ RATE OF 12 AND 35% FIO2 AND HFT 40LPM W/ 35% FIO2. SPO2 MAINTAINS IN HIGH 90'S, RR 20'S. LUNG SOUNDS COARSE T/O AND DIM IN BASES. OCCASSIONAL PRODUCTIVE COUGH W/ THIN WHITE SPUTUM W/ YELLOW TINGE. PULSES STRONG IN STUART RADIAL, FAINT PULSES IN STUART DP & PT. TRANSVENOUS PACER IN PLACE @ 48MM SET TO RATE 50, OUTPUT 15, AND SENSITIVITY 6. DR. LEVY CAME TO BEDSIDE TO ASSESS FOR PERMANENT PACEMAKER TODAY. STRIP IN CHART FOR WHEN DR. LEVY TURNED DOWN RATE ON PACER. CONSENT SIGNED FOR PERMANENT PACEMAKER PROCEDURE SCHEDULED FOR TODAY. NEW TRANSVENOUS PACEMAKER SETTINGS OF RATE 50, OUTPUT 10, AND SENSITIVITY 2. RATE MAINTAINING AT 49-LOW 50'S. BT HYPERACTIVE T/O. PATIENT HAS BEEN NPO SINCE MIDNIGHT. SKIN OVERALL DRY AND DUSKY W/ MOISTURE IN SKIN FOLDS AND PANNIS. SCATTERED BRUISING TO BUE AND RT SIDED CHEST WALL/AXILLS; REDNESS TO RT SIDE SKIN FOLD THAT IS TENDER TO TOUCH. BOWER IN PLACE AND DRAINING YELLOW CLEAR URINE TO GRAVITY ON ICE FOR 24 HOUR URINE THAT WAS STARTED AT 0645.
[2021-02-15 12:27] LABS: Free Thyroxine 1.26 ng/dL (0.70-1.60); Triiodothyronine, Free 1.23 pg/mL (2.18-3.98)
--- NOTE | 2021-02-15 18:28 | NUR ---
SHIFT SUMMARY PATIENT HAD PERMANENT DUAL PACEMAKER PLACED TODAY W/O COMPLICATIONS. RATE IS SET AT 60 W/ 100% PACING. STELLA DRESSING W/ TEGADERM OVER TOP TO RT SUBCLAVIAN TRANVENOUS PACER INSERTION SITE; SAME DRESSING OVER LT SUBCLAVIAN SITE FOR PACEMAKER INSERTION W/ SMALL AMOUNT OF BLEEDING. BLEEDING IS UNCHANGED SINCE ARRIVING BACK TO ICU FROM [facility]. CBG ORDERS CHANGED TO ACHS AND STATUS CHANGED TO PCU STATUS. 24 HOUR URINE STILL COLLECTING AND ON ICE IN ROOM. NO OTHER MAJOR CHANGES DURING SHIFT.
--- NOTE | 2021-02-15 21:11 | NUR ---
SHIFT ASSESSMENT PT ALERT AND ORIENTED. FOLLOWING COMMANDS, MOVING ALL EXTREMITIES. C/O MILD PAIN IN UPPER CHEST @ PACEMAKER INSERTION SITE, DENIES NEED FOR PAIN MEDS AT THIS TIME. LEFT ARM IN SLING. DUAL CHAMBER PACEMAKER SET @ MINIMAL RATE OF 60, 100% PACED. SUTURES c STELLA DRESSING & TEGADERM OVER INSERTION SITE, SMALL AMNT SS FLUID ON DRESSING, NO CHANGES FROM PREVIOUS NURSES ASSESSMENT. PT C/O MILD NAUSEA, MEDICATING PER MAR. ON BIPAP, SATS >95%. PT ON 1,000ML FLUID RESTRICTION, GIVEN APPROXIMATELY 50CC c EVENING MEDS. 24 HR URINE IN PROCESS, INITIATED @ , STOP @ , URINE ON ICE. PT TO BE TX TO PCU 13 @ THIS TIME, REPORT GIVEN TO FLACO GUTHRIE.
--- NOTE | 2021-02-15 21:57 | NUR ---
PT ARRIVED TO PCU 13 FROM ICU, REPORT REC'D FROM FLACO QUEEN. SMALL AMT BLODY DRAINAGE NOTED ON PACER INSERTION SITE, ORIENTED TO ROOM AND CALL [facility]. TELE SHOWS 100% PACED. FLACO KIM
--- NOTE | 2021-02-16 05:36 | NUR ---
PT AWAKE ALL NIGHT, WOULD ONLY WEAR BIPAP PART OF THE NIGHT AND WAS TEARFUL AND CRYING BECAUSE OF FLUID RESTRICION. EMOTIONAL SUPPORT GIVEN. NO CHANGES IN LEFT CHEST AREA PACER INSERTION SITE. PT USING CALL [facility], ASKING TO HAVE HER SHOULDER SCRATCHED, TO HAVE MORE FLUIDS, TO HAVE LIGHT TURNED OFF AND ON. TELE SHOW V-PACED ON DEMAND, UNDERLYING RYTHYM SB W/ 1* AVB. 24 HOUR URINE COLLECTION CONTINUES, VSS, BED LOCKED AND LOW. PT EDUCATED ON APPROPRIATE USE OF CALL LIGHT, RATIONALE FOR FLUID RESTRICTION, AND POTENTIAL D/C. FLACO KIM
[2021-02-16 07:08] LABS: Protein, Urine Quantitative 8.9 mg/dL (0.0-11.9)
[2021-02-16 09:41] LABS: BASOPHILS ABSOLUTE AUTO 0.09 K/mm3 (0.00-0.23); BASOPHILS PERCENT AUTO 1 % (0-2); EOSINOPHILS ABSOLUTE AUTO 0.46 K/mm3 (0.00-0.68); EOSINOPHILS PERCENT AUTO 3 % (0-6); Hematocrit 29.2 % (33.0-51.0); Hemoglobin 8.3 g/dL (11.5-16.0); IMMATURE GRAN ABSOLUTE AUTO 0.09 K/mm3 (0.00-0.10); IMMATURE GRAN PERCENT AUTO 1 % (0-1); LYMPHOCYTES ABSOLUTE AUTO 2.33 K/mm3 (0.84-5.20); LYMPHOCYTES PERCENT AUTO 17 % (21-46); MONOCYTES ABSOLUTE AUTO 1.53 K/mm3 (0.16-1.47); MONOCYTES PERCENT AUTO 11 % (4-13); Mean Corpuscular HGB Conc 28.4 g/dL (31.5-36.5); Mean Corpuscular Volume 74 fL (80-100); Mean Platelet Volume 9.9 fL (9.1-12.4); NEUTROPHILS ABSOLUTE AUTO 9.08 K/mm3 (1.96-9.15); NEUTROPHILS PERCENT AUTO 67 % (41-73); NRBC ABSOLUTE 0.09 K/mm3 (0.00-0.02); NRBC Auto 0.7 /100 WBC (0.0-0.2); Platelet Count 273 K/mm3 (150-400); RDW Coefficient Variation 20.5 % (11.7-14.2); RDW Standard Deviation 53.1 fL (35.1-46.3); Red Blood Cell Count 3.96 M/mm3 (3.80-5.20); White Blood Cell Count 13.58 K/mm3 (4.00-11.30)
[2021-02-16 10:03] LABS: Albumin, Blood 2.4 g/dL (3.4-5.0); Anion Gap 6 mmol/L (6-16); Blood Urea Nitrogen 39 mg/dL (8-24); Bun/Creatinine Ratio 22.7 (12.0-20.0); CO2, Blood 27 mmol/L (21-32); Calcium, Blood 8.5 mg/dL (8.5-10.1); Chloride, Blood 103 mmol/L (98-108); Creatinine, Blood 1.72 mg/dL (0.40-1.00); Glomerular Filtration Rate 32 (60-); Glucose, Blood 263 mg/dL (70-99); Magnesium, Blood 1.7 mg/dL (1.6-2.4); Potassium, Blood 5.3 mmol/L (3.5-5.5); Sodium, Blood 136 mmol/L (136-145)
[2021-02-16] MEDS ORDERED: LORCET 5-325 M1 EACH PO (10:58)
[2021-02-16] MEDS ORDERED: ASCO500 PO (10:59)
[2021-02-16] MEDS ORDERED: DOCU100 PO (10:59)
[2021-02-16] MEDS ORDERED: MIRALAX1710 PO (11:00)
[2021-02-16] MEDS ORDERED: FERSU300 PO (11:00)
[2021-02-16] MEDS ORDERED: SENN187 PO (11:01)
--- NOTE | 2021-02-16 13:05 | NUR ---
UPDATE DISCHARGE INSTRUCTIONS PROVIDED TO PT. PT EDUCATED ON NEW MEDICATIONS AND CHANGES. PT PROVIDED POST PACEMAKER INSTRUCTIONS. ALL QUESTIONS ANSWERED.
--- NOTE | 2021-02-16 14:58 | NUR ---
Pt discharged to home today at 1445. She was taken by wheelchair out the front entrance to meet a cab. Pt was anxious to leave the hospital as she states she is more comfortable at home. Pt had pacemaker placed yesterday and seems to have tolerated the procedure well. 02 was in the mid 90's today on 3-4 L nasal canula. Any excertion by pt caused 02 levels to drop to upper 80's. [employer] delivered 02 to pt at hospital just before discharge. They were notified by hospital staff pharmacist when pt left hospital to meet her at home and set up 02 for her there.
== END 2021-02-16 15:05 | disposition home or self-care (01) | DRG 242 ==
LOC: ER 14:30 → ICUE 18:08 → PCU 18:08 → ICUE 18:54 → PCU 02-15 21:41
PROVIDERS: Family Medicine; Internal Medicine Nephrology; Student in an Organized Health Care Education/Training Program; ADMIT Internal Medicine
PROC: 0JH606Z Insertion of Pacemaker, Dual Chamber into Chest Subcutaneous Tissue and Fascia, Open Approach (ICD-10-PCS; principal; 2021-02-13)
PROC: 02H63JZ Insertion of Pacemaker Lead into Right Atrium, Percutaneous Approach (ICD-10-PCS; 2021-02-15)
PROC: 02HK3JZ Insertion of Pacemaker Lead into Right Ventricle, Percutaneous Approach (ICD-10-PCS; 2021-02-15)
PROC: 5A1223Z Performance of Cardiac Pacing, Continuous (ICD-10-PCS; 2021-02-15)
DX: I49.5 Sick sinus syndrome (principal); N17.0 Acute kidney failure with tubular necrosis; I50.33 Acute on chronic diastolic (congestive) heart failure; J96.11 Chronic respiratory failure with hypoxia; E87.2 Acidosis; I13.0 Hypertensive heart and chronic kidney disease with heart failure and stage 1 through stage 4 chronic kidney disease, or unspecified chronic kidney disease; Z68.44 Body mass index [BMI] 60.0-69.9, adult; E66.2 Morbid (severe) obesity with alveolar hypoventilation; N18.30 Chronic kidney disease, stage 3 unspecified; E87.5 Hyperkalemia; D63.1 Anemia in chronic kidney disease; E11.22 Type 2 diabetes mellitus with diabetic chronic kidney disease; J44.9 Chronic obstructive pulmonary disease, unspecified; F41.8 Other specified anxiety disorders; E03.9 Hypothyroidism, unspecified; D50.9 Iron deficiency anemia, unspecified; G47.33 Obstructive sleep apnea (adult) (pediatric); Z90.49 Acquired absence of other specified parts of digestive tract; Z99.89 Dependence on other enabling machines and devices; Z88.0 Allergy status to penicillin; Z88.2 Allergy status to sulfonamides; Z88.8 Allergy status to other drugs, medicaments and biological substances; Z79.4 Long term (current) use of insulin; Z79.82 Long term (current) use of aspirin; Z79.899 Other long term (current) drug therapy
CPT/HCPCS: 33208; 33210; 36415; 36600; 51703; 71045; 71046; 76770; 76937; 80048; 80053; 80069; 80076; 81001; 81025; 82550; 82607; 82728; 82746; 82803; 82947; 83540; 83550; 83735; 83880; 84100; 84132; 84156; 84439; 84443; 84481; 84484; 84550; 85025; 86038; 87086; 93005; 93010; 94660; 94761; 96365; 96375; 97162; 97530; 99152; 99153; 99285-25; A9270; C1751; C1785; C1894; C1898; C8923; J0461; J0610; J0881; J1644; J1815; J2060; J2250; J2405; J2765; J2916; J3010; J3370; J7030; J7040; J7042; J7050; Q9957; Q9967

== ENCOUNTER 2022-03-08 06:00 | Day surgery (SDC) | payer OTHER ==
[~2022-03-08 06:00] MED LIST changes: +BUME2 PO; +DOCU100 PO; +LORCET 5-325 M1 EACH PO; +MIRALAX1710 PO; +SENN187 PO
[2022-03-08] MEDS ORDERED: BUME2 PO (06:14)
[2022-03-08] MEDS ORDERED: INSULANI (06:14)
[2022-03-08] MEDS ORDERED: BASAGLAR K100 UNIT/1 SC (06:15)
[2022-03-08] MEDS ORDERED: ELIQUIS5 M2 PO (06:16)
[2022-03-08] MEDS ORDERED: ANORO ELLIPTA1 EACH INH (06:16)
[2022-03-08] MEDS ORDERED: LEVSOD25 PO (06:16)
--- NOTE | 2022-03-08 08:43 | NUR ---
PT AWAKE AND VERBALIZING WELL. PT IS 100% RV PACED POST CARDIOVERSION. PT AND VERBALIZED UNDERSTANDING OF WRITTEN AND VERBAL D/C INST. IV REMOVED.
== END 2022-03-08 22:57 | disposition home or self-care (01) ==
LOC: MHTC 06:00
DX: I48.91 Unspecified atrial fibrillation (principal); I48.3 Typical atrial flutter; R94.31 Abnormal electrocardiogram [ECG] [EKG]; R45.5 Hostility; I12.9 Hypertensive chronic kidney disease with stage 1 through stage 4 chronic kidney disease, or unspecified chronic kidney disease; N18.9 Chronic kidney disease, unspecified; I50.9 Heart failure, unspecified; I13.0 Hypertensive heart and chronic kidney disease with heart failure and stage 1 through stage 4 chronic kidney disease, or unspecified chronic kidney disease; E11.22 Type 2 diabetes mellitus with diabetic chronic kidney disease; Z79.4 Long term (current) use of insulin; Z95.0 Presence of cardiac pacemaker
CPT/HCPCS: 92960; 93005; 93010; A9270; J2704; J7030

== ENCOUNTER → 2022-12-09 | Outpatient (CLI) | payer OTHER ==
[~2022-12-09] MED LIST changes: +ANORO ELLIPTA1 EACH INH; +BASAGLAR K100 UNIT/1 SC; +ELIQUIS5 M2 PO; +INSULANI; +LEVSOD25 PO
[2022-12-09 19:52] LABS: Protein, Urine Quantitative 410.3 mg/dL (0.0-11.9)
== END | disposition home or self-care (01) ==
LOC: LAB SHORT 07:00 → LAB 07:00 → LAB FUT 12-07 15:35
PROVIDERS: Internal Medicine Nephrology
DX: N18.30 Chronic kidney disease, stage 3 unspecified (principal); D63.1 Anemia in chronic kidney disease; N25.81 Secondary hyperparathyroidism of renal origin; E55.9 Vitamin D deficiency, unspecified; R76.9 Abnormal immunological finding in serum, unspecified; R94.5 Abnormal results of liver function studies; R94.6 Abnormal results of thyroid function studies; G60.9 Hereditary and idiopathic neuropathy, unspecified; D51.8 Other vitamin B12 deficiency anemias; D52.8 Other folate deficiency anemias; D50.9 Iron deficiency anemia, unspecified; R32 Unspecified urinary incontinence
CPT/HCPCS: 81050; 82043; 82570; 84156

== ENCOUNTER → 2024-06-29 | Outpatient (CLI) | payer OTHER ==
[2024-06-29 20:19] LABS: BASOPHILS ABSOLUTE AUTO 0.13 K/mm3 (0.00-0.23); BASOPHILS PERCENT AUTO 1 % (0-2); EOSINOPHILS ABSOLUTE AUTO 0.38 K/mm3 (0.00-0.68); EOSINOPHILS PERCENT AUTO 3 % (0-6); Hematocrit 45.7 % (33.0-51.0); Hemoglobin 14.2 g/dL (11.5-16.0); IMMATURE GRAN ABSOLUTE AUTO 0.09 K/mm3 (0.00-0.10); IMMATURE GRAN PERCENT AUTO 1 % (0-1); LYMPHOCYTES ABSOLUTE AUTO 3.53 K/mm3 (0.84-5.20); LYMPHOCYTES PERCENT AUTO 27 % (21-46); MONOCYTES ABSOLUTE AUTO 0.92 K/mm3 (0.16-1.47); MONOCYTES PERCENT AUTO 7 % (4-13); Mean Corpuscular HGB 25.9 pg (26.0-34.0); Mean Corpuscular HGB Conc 31.1 g/dL (31.5-36.5); Mean Corpuscular Volume 83 fL (80-100); Mean Platelet Volume 10.8 fL (9.1-12.4); NEUTROPHILS ABSOLUTE AUTO 8.11 K/mm3 (1.96-9.15); NEUTROPHILS PERCENT AUTO 62 % (41-73); Platelet Count 286 K/mm3 (150-400); RDW Coefficient Variation 17.6 % (11.7-14.2); RDW Standard Deviation 51.8 fL (35.1-46.3); Red Blood Cell Count 5.48 M/mm3 (3.80-5.20); White Blood Cell Count 13.16 K/mm3 (4.00-11.30)
[2024-06-29 20:46] LABS: Thyroid Stimulating Hormone 0.051 uIU/mL (0.360-4.800)
[2024-06-29 20:47] LABS: Albumin, Blood 3.3 g/dL (3.4-5.0); Albumin/Globulin Ratio 0.7 (0.8-1.8); Bilirubin, Total 0.5 mg/dL (0.1-1.0); Bun/Creatinine Ratio 22.9 (12.0-20.0); Calcium, Blood 9.3 mg/dL (8.5-10.1); Creatinine, Blood 1.7 mg/dL (0.40-1.00); Globulin, Blood 4.8 g/dL (2.2-4.0); Potassium, Blood 3.7 mmol/L (3.5-5.5); Total Protein, Blood 8.1 g/dL (6.4-8.2)
[2024-06-29 21:34] LABS: Creatinine, Urine Random 71.9 mg/dL (27.00-270.00)
[2024-06-29 21:52] LABS: Microalb/Creat Ratio UR, Rand 883.171 mg/g (0.000-30.000)
== END ==
LOC: LAB SHORT 19:27 → LAB 19:27
PROVIDERS: Nurse Practitioner Family
DX: E11.21 Type 2 diabetes mellitus with diabetic nephropathy (principal)
CPT/HCPCS: 80053; 82043; 82570; 83036; 84443; 85025

== ENCOUNTER → 2025-02-06 | Outpatient (CLI) | payer OTHER | LOC: LAB 14:41 | DX: N18.30 Chronic kidney disease, stage 3 unspecified (principal); D63.1 Anemia in chronic kidney disease; N25.81 Secondary hyperparathyroidism of renal origin; E55.9 Vitamin D deficiency, unspecified; E78.00 Pure hypercholesterolemia, unspecified; R76.9 Abnormal immunological finding in serum, unspecified; R94.5 Abnormal results of liver function studies; R94.6 Abnormal results of thyroid function studies ==

== ENCOUNTER → 2025-03-05 | Outpatient (CLI) | payer OTHER | LOC: LAB 16:12 → LAB SHORT 16:12 | DX: N39.0 Urinary tract infection, site not specified (principal) | CPT/HCPCS: 87086 ==